=== PATIENT | male | born 1995 | race Caucasian/White ===

== ENCOUNTER → 2018-11-26 08:35 | Outpatient (CLI) | payer OTHER, SELFPAY ==
[2018-11-18 14:05] VITALS: BMI 30.4
[2018-11-20 13:26] VITALS: BMI 30.4
--- NOTE | 2018-11-26 08:38 | RAD_ITS ---
STUDY: X-RAY - ESOPHAGUS (BARIUM SWALLOW) WITH FLUOROSCOPY REASON FOR EXAM: Male, 23 years old. Dysphagia. TECHNIQUE: 20 view(s) of the esophagus were obtained following swallowing of barium. FLUOROSCOPY TIME (if supplied): (0:40) minutes/seconds COMPARISON: None. FINDINGS: There is no demonstrated esophageal foreign body. There is no demonstrated stricture or mucosal abnormality. Normal gastroesophageal junction, without a demonstrated hiatal hernia. The patient was unable to swallow the 12 mm tablet of barium. Normal visualized aortic arch and descending thoracic aorta. Normal visualized pulmonary parenchyma. Normal visualized osseous structures of the thorax. RAD/Esophagus Only IMPRESSION: Normal plain film x-ray examination (barium swallow) of the esophagus. Electronically Signed: Urbano Giordano, at 15:30 EDT , Service support ,
== END ==
PROVIDERS: Family Provider Family Medicine; PCP Family Medicine; Referring Provider Surgery; Visit Provider Surgery
DX: R13.10 Dysphagia, unspecified (principal)
CPT/HCPCS: 74220

== ENCOUNTER 2018-12-05 07:53 | Day surgery (SDC) | payer OTHER, SELFPAY ==
[2018-11-20 13:26] VITALS: BMI 30.4
[2018-12-05 08:08] VITALS: BP 177/95; PULSE 84; RESP 18; TEMP 36.6; O2SAT 100
== END 2018-12-05 08:56 | disposition home or self-care (01) ==
PROVIDERS: Family Provider Family Medicine; PCP Family Medicine; Referring Provider Family Medicine; Visit Provider Surgery
PROC: F00ZJWZ Instrumental Swallowing and Oral Function Assessment using Swallowing Equipment (ICD-10-PCS; CPT 43235; principal; 2018-12-05 07:55)
DX: R13.10 Dysphagia, unspecified (principal); R11.10 Vomiting, unspecified; R63.4 Abnormal weight loss
CPT/HCPCS: 91010